=== PATIENT | male | born 1995 | race Caucasian/White ===

== ENCOUNTER → 2023-12-03 07:18 | Outpatient (REF) | payer BC, SELFPAY | LOC: DHCBC HW 07:18 | PROVIDERS: ATTENDING PHYSICIAN Nurse Practitioner; FAMILY PHYSICIAN Physician Assistant Medical | DX: R00.2 Palpitations (principal); E78.1 Pure hyperglyceridemia | CPT/HCPCS: 93306 ==

== ENCOUNTER → 2024-07-31 10:30 | Outpatient (REF) | payer BC, SELFPAY | LOC: RCS 10:30 | PROVIDERS: ATTENDING PHYSICIAN Nurse Practitioner; FAMILY PHYSICIAN Physician Assistant Medical | DX: I10 Essential (primary) hypertension (principal); R00.2 Palpitations; E78.6 Lipoprotein deficiency | CPT/HCPCS: 93225; 93226 ==

== ENCOUNTER → 2024-08-11 08:36 | Outpatient (REF) | payer BC, SELFPAY | LOC: DHSLP 08:36 | PROVIDERS: ATTENDING PHYSICIAN Internal Medicine Critical Care Medicine; FAMILY PHYSICIAN Physician Assistant Medical | DX: G47.19 Other hypersomnia (principal); R06.83 Snoring | CPT/HCPCS: 95800 ==